=== PATIENT | male | born 1990 | race Caucasian/White ===

== ENCOUNTER 2024-11-25 14:46 | Emergency (ER) | payer OTHER ==
[~2024-11-25] VITALS: Ht 180.3 cm; Wt 129.3 kg
[~2024-11-25 14:46] MED LIST: ALBU90OI INH; AMOX500 PO; AZIT250 PO; CEFD300 PO; HYDGUAL120 PO; Prednisone20 MG PO
[2024-11-25 14:56] VITALS: BP 231/139
[2024-11-25] MEDS ORDERED: Ketorolac Tromethamine 15mg Vial IM ONE (18:15)
[2024-11-25] MEDS ORDERED: Lidocaine 4% 1 Patch TOP ONE (18:15)
[2024-11-25] MEDS ORDERED: ASPERFLEX1 EACH TOP (18:18)
== END 2024-11-25 18:32 | disposition home or self-care (01) ==
LOC: ER 14:46
DX: R07.81 Pleurodynia (principal)
CPT/HCPCS: 71101; 96372; 99283-25; A9270; J1885